=== PATIENT | female | born 1935 | race Caucasian/White ===

== ENCOUNTER 2017-08-27 15:36 | Emergency (ER) | payer MEDICARE, OTHER ==
[~2017-08-27] VITALS: Ht 160 cm; Wt 75.5 kg
[~2017-08-27 15:36] MED LIST: /WARF25TA PO; ACET50TA PO; ADVI200C5 PO; BETA2500 PO; CALC0.004 TOP; CALCTAB68 PO; CEPH2CAP PO; HYDROCORTIZONE CREAM TOP; LASI40TA PO; LIPI20TA PO; LUTE6TAB2 PO; MAG-84TA PO; METO50TA2 PO; MINERALS PO; MIRALAX PO; MULTIVIT PO; PERC7.5T12 PO; POTA20PO4 PO; PRAD150C; SING5CHW PO; SPIRIVA INH; TACLOIN4 TOP; VITA-108 PO; VITA200015 PO; VITA400C2 PO; [UNRECOGNIZED DRUG - CODE] TOP; [UNRECOGNIZED DRUG - OTHER] PO; [UNRECOGNIZED DRUG - OTHER] PO; [UNRECOGNIZED DRUG - OTHER] PO
[2017-08-27] MEDS ORDERED: METO25TA PO (16:05)
[2017-08-27] MEDS ORDERED: HALO5OI (16:05)
[2017-08-27] MEDS ORDERED: PRAD150C PO (16:05)
[2017-08-27] MEDS ORDERED: SING10TA32 PO (20:19)
[2017-08-27] MEDS ORDERED: SPIR1CAP INH (20:19)
[2017-08-27] MEDS ORDERED: DESO0.254 EXT (20:19)
[2017-08-27] MEDS ORDERED: VITA200015 PO (20:19)
[2017-08-27] MEDS ORDERED: MIRA33504 PO (20:19)
[2017-08-27] MEDS ORDERED: VITA400C7 PO (20:19)
[2017-08-27] MEDS ORDERED: GENT1SOL16 OU (20:19)
[2017-08-27] MEDS ORDERED: CLOB0.057 EXT (20:19)
[2017-08-27] MEDS ORDERED: VITMTA PO (20:19)
[2017-08-27] MEDS ORDERED: TYLE500T78 PO (20:19)
[2017-08-27 20:21] LABS: BASO % 0.6 % (0.0-1.0); EOS # 0.1 10^3/uL (0.0-0.50); IMMATURE GRANULOCYTE % 0.2 % (0-0); LYMPH # 1.2 10^3/uL (1.5-4.5); LYMPH % 18.6 % (24.0-44.0); MEAN CORPUSCULAR HEMOGLOBIN 34.9 pg (27.0-33.0); MEAN CORPUSCULAR HGB CONC 33.2 g/dl (32.0-36.5); MONO # 0.8 10^3/uL (0.0-0.8); MONO % 11.7 % (0.0-5.0); NEUTROPHILS # 4.3 10^3/uL (1.8-7.7); NEUTROPHILS % 66.9 % (36.0-66.0); PLATELET COUNT, AUTOMATED 197 10^3/uL (150-450); RED CELL DISTRIBUTION WIDTH 14.3 % (11.5-14.5); WHITE BLOOD COUNT 6.5 10^3/uL (4.0-10.0)
[2017-08-27 20:24] LABS: ADD MORPHOLOGY? NO
[2017-08-27 20:48] LABS: ERYTHROCYTE SEDIMENTATION RATE 17 mm/hr (0-30)
[2017-08-27 20:49] LABS: CALCIUM LEVEL 10.3 MG/DL (8.8-10.2); CREATININE FOR GFR 1.09 MG/DL (0.55-1.02); GLOMERULAR FILTRATION RATE 50.9 (>32); POTASSIUM SERUM 4.2 MEQ/L (3.5-5.1)
--- NOTE | 2017-08-27 21:30 | REPUSA ---
CLINICAL HISTORY: Edema. COMMENTS: Real time sonography with duplex doppler of the extremities bilaterally was performed with attention to the major deep venous structures. Evaluation reveals the common femoral, superficial femoral, popliteal bilaterally to be completely c ompressible without intraluminal thrombus. There is normal spontaneous phasic flow and augmentation i n all deep veins. The greater saphenous/common femoral vein junctions are patent bilaterally. IMPRESSION: No evidence of DVT in the lower extremities bilaterally. Thank you for your kind referral of this patient.
[2017-08-27] MEDS ORDERED: CLEO150C PO (21:52)
[2017-08-27] MEDS ORDERED: CLINDAMYCIN 150 MG CAP PO ONE (22:00)
[2017-08-27 22:06] VITALS: BP 150/71
== END 2017-08-27 22:30 | disposition home or self-care (01) ==
LOC: M ED 15:36
DX: L03.115 Cellulitis of right lower limb (principal); L03.116 Cellulitis of left lower limb; I50.9 Heart failure, unspecified; I11.0 Hypertensive heart disease with heart failure; J45.909 Unspecified asthma, uncomplicated; K74.60 Unspecified cirrhosis of liver; E78.00 Pure hypercholesterolemia, unspecified; Z79.899 Other long term (current) drug therapy; Z88.8 Allergy status to other drugs, medicaments and biological substances